=== PATIENT | male | born 1985 | race Caucasian/White ===

== ENCOUNTER 2020-05-29 20:58 | Emergency (ER) | payer OTHER ==
[~2020-05-29] VITALS: Ht 175.3 cm; Wt 81.6 kg
[2020-05-29 21:25] VITALS: BP 131/88
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
[2020-05-30] MEDS ORDERED: NALO4SPR NS (00:21)
[2020-05-30] MEDS ORDERED: BUTO10SP NS (00:21)
[2020-05-30 00:31] VITALS: BP 131/88
--- NOTE | 2020-05-30 00:31 | NUR ---
Patient discharged with v/s stable. Written and verbal after care instructions RE: MIGRAINE given and explained. Patient alert, oriented and verbalized understanding of instructions. Ambulatory with steady gait. All questions addressed prior to discharge. ID band removed. Patient advised to follow up with PMD. Rx of BUTORPHANOL AND NALOXONE given. Patient educated on indication of medication including possible reaction and side effects. Opportunity to ask questions provided and answered.
== END 2020-05-30 00:31 | disposition home or self-care (01) ==
LOC: MED 20:58
DX: G43.909 Migraine, unspecified, not intractable, without status migrainosus (principal); Z87.81 Personal history of (healed) traumatic fracture
CPT/HCPCS: 99283

== ENCOUNTER 2021-02-20 00:21 | Emergency (ER) | payer OTHER ==
[~2021-02-20] VITALS: Ht 175.3 cm; Wt 86.2 kg
[~2021-02-20 00:21] MED LIST: BUTO10SP10 NS; NALO4SPR NS
[2021-02-20 00:23] VITALS: BP 154/85
--- NOTE | 2021-02-20 00:25 | NUR ---
to bed ambulatory
--- NOTE | 2021-02-20 00:46 | NUR ---
KENDY hurd at bedside for examination along with kiki
[2021-02-20] MEDS ORDERED: BUTO10SP10 NS ×2 (00:52→01:32)
[2021-02-20] MEDS ORDERED: NALO4SPR NS ×2 (00:52→01:32)
[2021-02-20 01:19] VITALS: BP 154/85
--- NOTE | 2021-02-20 01:19 | NUR ---
Patient discharged with v/s stable. Written and verbal after care instructions given and explained. Patient alert, oriented and verbalized understanding of instructions. Ambulatory with steady gait. All questions addressed prior to discharge. ID band removed. Patient advised to follow up with PMD. Rx of Butorphanol tarte and narcan given. Patient educated on indication of medication including possible reaction and side effects. Opportunity to ask questions provided and answered.
== END 2021-02-20 01:19 | disposition home or self-care (01) ==
LOC: MED 00:21
DX: R51.9 Headache, unspecified (principal); G43.909 Migraine, unspecified, not intractable, without status migrainosus; H54.62 Unqualified visual loss, left eye, normal vision right eye; Z79.899 Other long term (current) drug therapy; Z98.890 Other specified postprocedural states
CPT/HCPCS: 99283

== ENCOUNTER 2021-04-19 02:35 | Emergency (ER) | payer OTHER ==
[~2021-04-19] VITALS: Ht 177.8 cm; Wt 93.0 kg
[2021-04-19 02:45] VITALS: BP 121/76
--- NOTE | 2021-04-19 02:49 | NUR ---
PATIENT TO THE LOBBY
[2021-04-19] MEDS ORDERED: SUMAtriptan succinate 6 MG/0.5 ML VIAL SUBQ ONE (03:05)
--- NOTE | 2021-04-19 03:06 | NUR ---
SEEN BY KENDY PARDO FOR EXAMINATION
[2021-04-19 03:15] VITALS: BP 121/76
--- NOTE | 2021-04-19 03:15 | NUR ---
Patient discharged with v/s stable. Written and verbal after care instructions given and explained. Patient verbalized understanding. Ambulatory with steady gait. All questions addressed prior to discharge. Advised to follow up with PMD.
--- NOTE | 2021-04-19 03:15 | NUR ---
PATIENT LEFT WITHOUT D/C PAPERWORK
== END 2021-04-19 03:15 | disposition home or self-care (01) ==
LOC: MED 02:35
DX: F11.10 Opioid abuse, uncomplicated (principal); G43.909 Migraine, unspecified, not intractable, without status migrainosus
CPT/HCPCS: 99281

== ENCOUNTER 2021-08-12 15:39 | Emergency (ER) | payer OTHER ==
[~2021-08-12] VITALS: Ht 175.3 cm; Wt 86.2 kg
[2021-08-12 16:26] VITALS: BP 161/101
--- NOTE | 2021-08-12 17:16 | NUR ---
36/M PRESENTS TO ED WITH C/O MIGRAINE, PATIENT STATES LONG HX OF MIGRAINES AND STATES HE USUALLY TAKES NASAL SPRAY MEDICATIONS WITH RELIEF BUT STATES HE HAS BEEN OUT FOR A FEW MONTHS. PATIENT REPORTS PHOTOPHOBIA, DENIES N/V/D, DIZZINESS OR VISION CHANGES.
[2021-08-12] MEDS ORDERED: BUTO10SP10 NS (17:19)
--- NOTE | 2021-08-12 17:40 | NUR ---
Patient discharged with v/s stable. Written and verbal after care instructions ABOUT MIGRAINE HEADACHE given and explained. Patient alert, oriented and verbalized understanding of instructions. Ambulatory with steady gait. All questions addressed prior to discharge. ID band removed. Patient advised to follow up with PMD. Rx of BUTORPHANOL TARTRATE given. Patient educated on indication of medication including possible reaction and side effects. Opportunity to ask questions provided and answered.
== END 2021-08-12 17:40 | disposition home or self-care (01) ==
LOC: MED 15:39
DX: G43.909 Migraine, unspecified, not intractable, without status migrainosus (principal); Z79.899 Other long term (current) drug therapy
CPT/HCPCS: 99283

== ENCOUNTER 2021-08-29 15:07 | Emergency (ER) | payer OTHER ==
[~2021-08-29] VITALS: Ht 175.3 cm; Wt 95.3 kg
[2021-08-29 15:16] VITALS: BP 113/73
--- NOTE | 2021-08-29 15:20 | NUR ---
36 Y/O MALE C/O MIGRAINE X2 DAYS, STATES HX OF MIGRAINES. REPORTS USUALLY TAKE BUTORPHANOL NASAL SPRAY BUT STATES HE IS OUT AND HAS NOT FOUND RELIEF. DENIES N/V/D, REPORTS PHOTOSENSITIVITY. PT DENIES CHEST PAIN, SOB. PT DENIES FEVER OR CHILLS. PT ALERT AND ORIENTED X4. BED LOCKED IN LOWEST POSITION, BED RAILX1. PMH: MIGRAINES NKA
--- NOTE | 2021-08-29 15:24 | NUR ---
PER PATIENT, FAMILY DROVE HIM HERE BUT STATES HE NEEDS TO DRIVE HOME. "I CAN'T HAVE THEM DRIVE. I JUST WANT A PRESCRIPTION; NASAL SPRAY WORKS."
[2021-08-29] MEDS ORDERED: BUTO10SP10 NS ×2 (16:41→19:02)
--- NOTE | 2021-08-29 16:49 | NUR ---
Patient discharged with v/s stable. Written and verbal after care instructions given and explained. Patient alert, oriented and verbalized understanding of instructions. Ambulatory with steady gait. All questions addressed prior to discharge. ID band removed. Patient advised to follow up with PMD. Rx of BUTORPHANOL TARTRATE given. Patient educated on indication of medication including possible reaction and side effects. Opportunity to ask questions provided and answered.
== END 2021-08-29 16:49 | disposition home or self-care (01) ==
LOC: MED 15:07
DX: G43.909 Migraine, unspecified, not intractable, without status migrainosus (principal); Z79.899 Other long term (current) drug therapy
CPT/HCPCS: 99283

== ENCOUNTER 2021-10-20 20:22 | Emergency (ER) | payer OTHER ==
[~2021-10-20] VITALS: Ht 175.3 cm; Wt 93.9 kg
[2021-10-20 20:40] VITALS: BP 125/77
--- NOTE | 2021-10-20 22:29 | NUR ---
PT TAKEN TO BED 5
[2021-10-20 22:40] VITALS: BP 125/70
--- NOTE | 2021-10-20 22:40 | NUR ---
36/M BIB SELF C/O MIGRAINE X 3 DAY. RAN OUT OF HIS MEDICATION BUTORPHANOL. PER PATIENT HE HAS SOME NAUSEA AND PHOTOPHOBIA. PATIENT IS AAOX4. AMBULATORY. PLACED IN GOWN AND MONITOR. BED LOW AND LOCKED . SIDE RAIL UP FOR SAFETY. ALL NEEDS MET. PMHX MIGRAINES, HIP REPLACEMENT, [facility] BUTORPHANOL NKA
--- NOTE | 2021-10-20 22:41 | NUR ---
Dr. Lopez examining patient.
[2021-10-20] MEDS ORDERED: ONDANSETRON 4 MG ODT PO ONE (22:45)
[2021-10-20] MEDS ORDERED: BUTO10SP10 NS (22:51)
[2021-10-20] MEDS ORDERED: ONDA8TAB87 PO (22:51)
--- NOTE | 2021-10-20 23:05 | NUR ---
Patient discharged with v/s stable. Written and verbal after care instructions given MIGRAINE and explained. Patient alert, oriented and verbalized understanding of instructions. Ambulatory with steady gait. All questions addressed prior to discharge. ID band removed. Patient advised to follow up with PMD. Rx of BUTORPHANOL TARTRATE AND ONDANSETRON given.
== END 2021-10-20 23:05 | disposition home or self-care (01) ==
LOC: MED 20:22
DX: G43.909 Migraine, unspecified, not intractable, without status migrainosus (principal); R11.0 Nausea; Z79.899 Other long term (current) drug therapy; Z98.890 Other specified postprocedural states
CPT/HCPCS: 99283; Q0162

== ENCOUNTER 2021-10-31 02:07 | Emergency (ER) | payer OTHER ==
[~2021-10-31] VITALS: Ht 175.3 cm; Wt 95.3 kg
[~2021-10-31 02:07] MED LIST changes: +ONDA8TAB87 PO
[2021-10-31 02:13] VITALS: BP 125/85
[2021-10-31 02:25] VITALS: BP 125/85
--- NOTE | 2021-10-31 02:33 | NUR ---
Dr. Elkins examining patient,
--- NOTE | 2021-10-31 02:33 | NUR ---
Patient refused COVID-19 and Flu swabs , Dr. Elkins notified,
--- NOTE | 2021-10-31 02:51 | NUR ---
Patient left without D/C papers.
== END 2021-10-31 02:51 | disposition home or self-care (01) ==
LOC: MED 02:07
DX: J20.9 Acute bronchitis, unspecified (principal); Z79.899 Other long term (current) drug therapy
CPT/HCPCS: 99281

== ENCOUNTER 2021-11-20 13:27 | Emergency (ER) | payer OTHER ==
[~2021-11-20] VITALS: Ht 175.3 cm; Wt 91.6 kg
[2021-11-20 13:37] VITALS: BP 128/75
--- NOTE | 2021-11-20 13:40 | NUR ---
AMBULATED TO BED 9
--- NOTE | 2021-11-20 13:45 | NUR ---
36 Y/O MALE BIB SELF C/O OF RIGHT SIDED MIGRAINE KEYES EXCACERBATED BY LIGHT AND [id number]. PER PT HE RAN OUT OF HIS NASAL SPRAY FOR MIGRAINES. DENIES ANY N/V/BLURRING VISION NKA PMH: HX MIGRAINES
--- NOTE | 2021-11-20 13:49 | NUR ---
DR BROWN AT BEDSIDE FOR EVAL
[2021-11-20] MEDS ORDERED: BUTO10SP10 NS (14:02)
--- NOTE | 2021-11-20 14:08 | NUR ---
Patient discharged with v/s stable. Written and verbal after care instructions given and explained. Patient alert, oriented and verbalized understanding of instructions. Ambulatory with steady gait. All questions addressed prior to discharge. ID band removed. Patient advised to follow up with PMD. Rx of butorphanol tartrate given. Patient educated on indication of medication including possible reaction and side effects. Opportunity to ask questions provided and answered.
== END 2021-11-20 14:08 | disposition home or self-care (01) ==
LOC: MED 13:27
DX: G43.909 Migraine, unspecified, not intractable, without status migrainosus (principal); Z98.890 Other specified postprocedural states
CPT/HCPCS: 99283